=== PATIENT | male | born 1940 | race Two or more races ===

== ENCOUNTER 2020-01-22 23:36 | Emergency (ER) | payer OTHER ==
[~2020-01-22] VITALS: Ht 177.8 cm; Wt 68.0 kg
[2020-01-23] MEDS ORDERED: TAMS0.4C PO (02:20)
[2020-01-23] MEDS ORDERED: CIPRO500 MG PO (02:20)
== END 2020-01-23 02:28 | disposition home or self-care (01) ==
LOC: ER 23:36
DX: R33.8 Other retention of urine (principal)